=== PATIENT | male | born 1995 | race Caucasian/White ===

== ENCOUNTER → 2020-04-22 15:50 | Outpatient (CLI) | payer MEDICAID, SELFPAY ==
[2020-04-22 17:15] LABS: Basophils # 0.1 K/mm3 (0-0.2); Basophils % 0.5 % (0.1-2.0); Eosinophils # 0.1 K/mm3 (0.0-0.4); Eosinophils % 1.1 % (0.1-12.0); Hematocrit 48.6 % (42.0-52.0); Hemoglobin 15.7 g/dL (14.1-18.0); Lymphocytes # 3.1 K/mm3 (0.7-4.5); Lymphocytes % 34.3 % (10-50); Mean Corpuscular HGB Conc 32.2 g/dL (31.8-35.4); Mean Corpuscular Hemoglobin 28.4 pg (27.0-31.2); Mean Platelet Volume 10.2 fl (7.4-10.4); Monocytes # 0.4 K/mm3 (0.1-1.0); Monocytes % 4.6 % (1.7-9.3); Neutrophils # 5.3 K/mm3 (1.8-7.8); Neutrophils % 59.5 % (37.0-80.0); Platelet Count 260 K/mm3 (142-424); Red Blood Count 5.53 M/mm3 (4.60-6.20); Red Cell Distribution Width 13.3 % (11.5-17.5); White Blood Count 8.9 K/mm3 (4.8-10.8)
[2020-04-22 20:14] LABS: Chloride 106 mmol/L (98-107)
[2020-04-22 20:15] LABS: Potassium 4.3 mmoL/L (3.5-5.1); Sodium 142 mmol/L (136-145)
[2020-04-22 20:17] LABS: Alanine Aminotransferase 102 U/L (12-78); Alkaline Phosphatase 69 U/L (38-126); Aspartate Amino Transferase 57 U/L (17-59); Bilirubin,Total 0.6 mg/dl (0.2-1.3); Blood Urea Nitrogen 18 mg/dl (9-20); Estimated Glomerular Filt Rate 74 ml/min (>60); GFR (African American) 90 ML/MIN (>60)
[2020-04-22 20:18] LABS: Albumin Level 4.7 g/dl (3.5-5.0); Albumin/Globulin Ratio 1.3 (1.1-1.8); Anion Gap 15.3 mEq/L (5-15); Calcium 9.8 mg/dl (8.4-10.2); Carbon Dioxide 25 mmol/L (22.0-30.0); Chol/HDL Ratio 3.9 (1-3.5); Cholesterol 217 mg/dl (140-200); Globulin 3.5 g/dL (1.3-3.2); Glucose 114 mg/dl (74-100); HDL Cholesterol 55 mg/dl (40-60); Total Protein,Serum 8.2 g/dl (6.3-8.2); Triglycerides 75 mg/dl (30-150); VLDL Cholesterol 15 mg/dL (0-40)
[2020-04-22 20:29] LABS: Direct LDL Cholesterol 141.17 mg/dL (100-129)
[2020-04-22 20:36] LABS: 25-OH Vitamin D, Total 18.5 ng/mL (30-100)
[2020-04-22 20:49] LABS: Thyroid Stimulating Hormone 7.35 uIU/mL (0.465-4.68)
== END ==
PROVIDERS: Visit Provider Nurse Practitioner Family
DX: Z00.00 Encounter for general adult medical examination without abnormal findings (principal); R53.83 Other fatigue; E55.9 Vitamin D deficiency, unspecified; Z79.899 Other long term (current) drug therapy
CPT/HCPCS: 80053; 80061; 82306; 84439; 84443; 85025

== ENCOUNTER 2023-12-04 14:54 | Outpatient (CLI) | payer MEDICAID, SELFPAY ==
[2023-12-04 15:36] LABS: Basophils # 0.1 K/mm3 (0-0.2); Basophils % 0.6 % (0.1-2.0); Eosinophils # 0.2 K/mm3 (0.0-0.4); Eosinophils % 2.2 % (0.1-12.0); Hematocrit 46.5 % (42.0-52.0); Hemoglobin 15.4 g/dL (14.1-18.0); Lymphocytes # 3.8 K/mm3 (0.7-4.5); Mean Corpuscular HGB Conc 33.1 g/dL (31.8-35.4); Mean Corpuscular Hemoglobin 29.9 pg (27.0-31.2); Mean Corpuscular Volume 90.4 fl (80-94); Mean Platelet Volume 8.7 fl (7.4-10.4); Monocytes # 0.6 K/mm3 (0.1-1.0); Monocytes % 5.9 % (1.7-9.3); Neutrophils # 5.5 K/mm3 (1.8-7.8); Neutrophils % 54.2 % (37.0-80.0); Platelet Count 258 K/mm3 (142-424); Red Blood Count 5.14 M/mm3 (4.60-6.20); Red Cell Distribution Width 13.5 % (11.5-17.5); White Blood Count 10.1 K/mm3 (4.8-10.8)
[2023-12-04 16:33] LABS: Alanine Aminotransferase 129 U/L (12-78); Albumin Level 4.6 g/dl (3.5-5.0); Alkaline Phosphatase 64 U/L (38-126); Anion Gap 8.7 mEq/L (5-15); Aspartate Amino Transferase 67 U/L (17-59); Bilirubin,Direct 0.2 mg/dl (0.0-0.4); Bilirubin,Indirect 0.3 mg/dL (0.0-0.9); Bilirubin,Total 0.5 mg/dl (0.2-1.3); Bilirubin,Unconjugated 0.3 mg/dL (0.0-1.1); Blood Urea Nitrogen 14 mg/dl (9-20); Calcium 9.8 mg/dl (8.4-10.2); Carbon Dioxide 31 mmol/L (22.0-30.0); Chloride 102 mmol/L (98-107); Chol/HDL Ratio 3.9 (1-3.5); Cholesterol 225 mg/dl (140-200); Estimated Glomerular Filt Rate 73 ml/min (>60); GFR (African American) 88 ML/MIN (>60); Glucose 94 mg/dl (74-100); HDL Cholesterol 57 mg/dl (40-60); Potassium 4.7 mmoL/L (3.5-5.1); Sodium 137 mmol/L (136-145); Total Protein,Serum 7.3 g/dl (6.3-8.2); Triglycerides 132 mg/dl (30-150); VLDL Cholesterol 26 mg/dL (0-40)
[2023-12-04 16:44] LABS: Direct LDL Cholesterol 136.28 mg/dL (100-129)
[2023-12-04 16:52] LABS: Free T4 (Free Thyroxine) 0.88 ng/dl (0.78-2.19)
[2023-12-04 17:04] LABS: Thyroid Stimulating Hormone 2.73 uIU/mL (0.465-4.68)
== END 2023-12-04 23:59 | disposition home or self-care (01) ==
LOC: LAB 14:56
PROVIDERS: Nurse Practitioner Family; PCP Family Medicine; Visit Provider Internal Medicine
DX: R06.02 Shortness of breath (principal); R07.89 Other chest pain; I10 Essential (primary) hypertension; Z82.49 Family history of ischemic heart disease and other diseases of the circulatory system; F84.0 Autistic disorder
CPT/HCPCS: 36415; 80048; 80061; 80076; 84439; 84443; 85025

== ENCOUNTER 2023-12-12 09:58 | Outpatient (CLI) | payer MEDICAID, SELFPAY ==
--- NOTE | 2023-12-12 | CA_ITS ---
APPROVED REPORT Exam: Exercise Treadmill Technologist: Payton Baltazar, Ht: 5 ft 4 in Wt: 261 lbs BSA: 2.19 m2 HR: 76 bpm BP: 161/81 mmHg Rhythm: Nsr, right axis deviation, small Q waves and T wave abns inferiorly Medical History Medical History: HTN Medications: Acetaminophen,,,,, Ibuprofen,,,,, Ciprofloxacin-dexamethasone,,,,, Allergies: azithromycin, demerol, omnicef, polyhist HC Cardiac Risk Factors: HTN, FHX of CAD Stress Test Details Test: Fidel, Exercise stress testing was performed using a modified Fidel protocol. HR Resting HR: 96 bpm Max Heart Rate (APMHR): 193 bpm Max HR Achieved: 172 bpm Target HR (85% APMHR): 164 bpm % of APMHR: 89 Recovery HR: 102 bpm BP Resting BP: 161/81 mmHg Max BP: 161/81 mmHg Recovery BP: 141.0/80.0 mmHg ECG Resting ECG: Nsr, right axis deviation, small Q qaves and T wave abns inferiorly Clinical Exercise duration: 05:59 min Highest Stage Achieved: Exercise capacity: 7.0 METs Stress ECG Conclusion Pt exercised 6:00 on Fidel protocol Max HR: 170 % of PM: 88% Max BP: 141/87 Mets :7.0 Test stopped due to: soa, fatigue Pt had chest tightness with soa near maximum HR Exaggeration of baseline abns Conclusion: Nondiagnostic treadmill ECG stress test due to baseline abnormalities. GXT only (no imaging) Test Summary REST . . . . . . . Standing REST . . . . . . . Sitting REST 04:03 0.0 0.0 96 . 161/ 81 . . Stage 1 01:00 10.0 1.7 135 . . . . Stage 1 02:00 10.0 1.7 146 . . . . Stage 1 03:00 10.0 1.7 151 . . . . Stage 2 01:00 12.0 2.5 162 . . . . Stage 2 02:00 12.0 2.5 169 . . . . Stage 2 02:59 12.0 2.5 166 . . . Stop exercise at 05:59 RECOVERY 01:00 0.0 0.0 142 . . . . RECOVERY 02:00 0.0 0.0 124 . 140/ 80 . . RECOVERY 03:00 0.0 0.0 105 . 141/ 87 . . RECOVERY 04:00 0.0 0.0 108 . 141/ 87 . . RECOVERY 05:00 0.0 0.0 102 . 141/ 80 . . RECOVERY 05:19 0.0 0.0 99 . 141/ 80 . . Electronically signed by : Lynda Solomon MD 12/26/2023 13:02:41
--- NOTE | 2023-12-12 10:02 | CA_ITS ---
APPROVED REPORT EXAM: Comprehensive 2D, Doppler, and color-flow Echocardiogram Rf Manager: Chetna Rowley RVT Ht: 5 ft 4 in Wt: 261lbs BSA: 2.19 BP: 144/85 mmHg Indications: CP,HTN,SOA,FAMILY HX CAD 2D Dimensions LA Volume 13.10 mL LA Volume Index 5.98 mL/m2 (M/F) 16-34 M-Mode Dimensions RVDd 2.77 cm (0.9-2.6) LA Diam 3.33 cm (1.9-4.0) LVDd 3.81 cm (3.5-5.7) LVDs 2.41 cm (3.5-5.7) IVSd 1.04 cm (0.6-1.1) PWd 0.80 cm (0.6-1.1) EF (Teich) 67.30% FS 36.70% EDV (Teich) 62.30 mL ESV (Teich) 20.40 mL LV Diastology E Decel Time 150 (160-240 msec) E/A Ratio 1.3 LAT A' 12.40 cm/s Aortic Valve NELDA Index 1.96 cm2/m2 AoV Peak Aryan. 103.0 (50-130 cm/s) AO Peak GR. 4.20 mmHg AO Mean GR. 2.10 (<5 mmHg) AO VTI 13.9 (18-25 cm) NELDA (VTI) 4.39 (2.5-4.5 cm2) Mitral Valve MV E Max Aryan. 77.0 (40-130 cm/s) MV A Velocity 59.0 (40-130 cm/s) E/A Ratio 1.31 MV PHT 44.0 ms Pulmonary Valve PV Peak Velocity 106.0 (50-150 cm/s) Left Ventricle The left ventricle is normal size. The left ventricular systolic function is normal. The left ventricular ejection fraction is within the normal range. There is normal left ventricular wall thickness. There is normal LV segmental wall motion. The left ventricular diastolic function is normal. LVEF is 55%. Right Ventricle The right ventricle is normal size. The right ventricular systolic function is normal. Atria The left atrium size is normal. The right atrium size is normal. There is no Doppler evidence of interatrial shunt. Aortic Valve The aortic valve opens well. There is no aortic valvular stenosis. No aortic regurgitation is present. Mitral Valve The mitral valve is normal in structure. No evidence of mitral valve stenosis. There is no mitral valve regurgitation noted. Tricuspid Valve Tricuspid valve is grossly normal in structure and function. Trace tricuspid regurgitation. There is insufficient TR jet to estimate RVSP. Pulmonic Valve The pulmonary valve is normal in structure. Trace pulmonic regurgitation. Great Vessels The aortic root is normal in size. The ascending aorta is not well-visualized. IVC is normal in size and collapses >50% with inspiration. Pericardium There is no pericardial effusion. Other Information Study Quality: Fair Conclusion Normal biventricular systolic function. No significant valvular stenosis or regurgitation. Electronically signed by : Lynda Solomon MD 12/16/2023 23:38:59
== END 2023-12-12 23:59 | disposition home or self-care (01) ==
LOC: RT 09:59
PROVIDERS: PCP Family Medicine; Visit Provider Nurse Practitioner Family
DX: R06.02 Shortness of breath (principal); R07.89 Other chest pain
CPT/HCPCS: 93017; 93018; 93306

== ENCOUNTER 2024-01-10 08:40 | Outpatient (CLI) | payer MEDICAID, SELFPAY ==
--- NOTE | 2024-01-10 08:43 | CT_ITS ---
APPROVED REPORT Cancer Spec: CLINICAL INDICATION Chest Pain TECHNIQUE Image Acquisition: A 128 slice MDCT scanner ([employer] TargeGena View) was used for data acquisition. A noncontrast coronary calcium scan was performed. A CT attenuation threshold of 130 Hounsfield units (HU) was used for the detection of calcium in contiguous voxels of 1 sq mm in area to be counted as individual lesions. Bolus tracking in the ascending aorta with a threshold of 180 HU was performed. Immediately afterwards, ECG synchronized cardiac CT was then performed from the cardiac base to apex using retrospective gating with ECG tube current modulation. A total of 85 mL of Isovue 370 mg/mL contrast medium was administered at 5 mL/sec followed by a saline flush using a biphasic injection protocol. A tube voltage of 120 KVp was used. The average heart rate at the time of acquisition was 80bpm and regular. Image Reconstruction Transaxial images were reconstructed at 0.67 mm slide thickness. Data was reviewed interactively on an advanced workstation capable of 2 and 3-dimensional displays in all conventional reconstruction formats, including multiplanar reformations, maximum intensity projections, curved multiplanar reformations, and volume rendered reconstructions. When applicable, selected routine images describing the relevant coronary anatomy and pathology were saved and sent to PACS. Complications None Technical Quality Overall image quality was fair. Coronary artery opacification was suboptimal. Total DLP (Dose-Length Product) is 2935.4 mGy-cm. The reported value represents the total of one or more individual components during the CT acquisition of this date and at this time, and as such, the same value may appear in more than one CT report depending on the interpreting/reporting physicians. COMPARISON None FINDINGS CT Coronary Calcium Scoring LMA (Left Main Artery) = 0 LAD (Left Anterior Descending) = 0 LCX (Left Coronary Circumflex) = 0 RCA (Right Coronary Artery) = 0 Total Calcium Score = 0 using the AJ-130 method. The interpretation of the calcium heart score is based on the following continuum*: 0 = no calcified plaque detected (risk of coronary artery disease is very low ??? less than 5%) 1-10 = calcium detected in extremely minimal levels (risk of coronary diseases is still low ??? less than 10%) 11-100 = mild levels of plaque detected with certainty (mild or minimal narrowing of heart arteries is likely) 101-400 = definite,at least moderate levels of plaque detected (relatively high risk of a heart attack within 3-5 years) >401-999 = extensive levels of plaque detected (high risk of heart attack, high levels of vascular disease are present, high likelihood of at least one significant coronary narrowing) *The calcium heart score quantifies the burden of coronary calcification/plaque in the coronary arteries. The calcium heart score is not able to evaluate the presence or burden of non-calcified (i.e. soft) plaque. There is no identifiable calcification in the aortic valve, mitral annulus or mitral valve, pericardium, or myocardium. Coronary CT Angiography The coronary arterial system is right dominant. Quantitative Stenosis Grading: Left Main (LM): The left main originates normally from the left sinus of Valsalva. The LM bifurcates into the left anterior descending artery and left circumflex artery. The LM is patent with no evidence of atherosclerosis. Left Anterior Descending (LAD) and Diagonal Branches: The LAD gives off 2 diagonal branch(es). The LAD and its branches are patent with no obvious evidence of atherosclerosis. There is no evidence of LAD-myocardial bridge. Left Circumflex (LCX) and Obtuse Marginals (OM): The LCX gives off 1 Obtuse Marginal (OM) branch(es). The LCX and its branches are patent with no obvious evidence of atherosclerosis. Right Coronary Artery (RCA): The RCA originates normally from the right sinus of Valsalva. The RCA gives off a posterior descending artery (PDA) and posterolateral (PL) branches. The RCA and its branches are patent with no obvious evidence of atherosclerosis. Non-Coronary Cardiac Findings: Analysis of the left ventricular (LV) structure and function was performed after 3-D reconstruction of the LV from axial images, with user-corrected automatic contouring for assessment of LV volumes and user-defined reconstruction from oblique planes for measurement of 3-D cardiac structure and function. -The left ventricle systolic function is normal. -There is no left atrial appendage filling defect. Two right pulmonary veins and two left pulmonary veins drain normally into the left atrium. -No pericardial thickening or calcification. -Central and branch pulmonary arteries in the [id number] are unremarkable. -Thoracic aorta within the visualized thoracic aortic-branches in the [id number] is unremarkable. Extracardiac Structures No significant extra-cardiac findings. Note, however, that this study is focused on the cardiac findings. IMPRESSION -Suboptimal study due to inadequate opacification of the coronary arteries at the time of image acquisition. -No coronary calcification with an Agatston score = 0 using the AJ-130 method. -No obvious evidence of significant flow-limiting atherosclerosis of the coronary arteries. -No evidence of coronary anomalies or myocardial bridges. -CAD-RADS 0. Management recommendations per ACC/AHA guidelines*, as clinically appropriate. *Recommendations: CAD RADS 0: Reassurance. Consider non-atherosclerotic causes of chest pain. CAD RADS 1: Consider non-atherosclerotic causes of chest pain. Consider preventive therapy and risk factor modification. CAD RADS 2: Consider non-atherosclerotic causes of chest pain. Consider preventive therapy and risk factor modification, particularly for patients with nonobstructive plaque in multiple segments. CAD RADS 3: Consider further functional testing. Consider symptom-guided anti-ischemic and preventive pharmacotherapy as well as risk factor modification per published guideline statements. CAD RADS 4A: Consider further functional testing or invasive coronary angiography with revascularization per published guideline statements. Consider symptom-guided anti-ischemic and preventive pharmacotherapy as well as risk factor modification per published guideline statements. CAD RADS 4B: Invasive coronary angiography recommended with revascularization per published guideline statements. Consider symptom-guided anti-ischemic and preventive pharmacotherapy as well as risk factor modification per published guideline statements. CAD RADS 5: Consider invasive angiography and/or viability assessment with revascularization per published guideline statements. Consider symptom-guided anti-ischemic and preventive pharmacotherapy as well as risk factor modification per published guideline statements. CRITICAL RESULT None COMMUNICATION Per this written report The coronary and cardiac findings of this CCTA were reviewed, reported, and signed by Beck Solomon MD ([place]) Conclusion Electronically signed by : Lynda Solomon MD 01/12/2024 20:22:07
[2024-01-10 08:46] VITALS: BMI 44.4
[2024-01-10 10:10] VITALS: BP 145/93; PULSE 82; RESP 18; O2SAT 100
[2024-01-10] MEDS: IVABRADINE HCL 7.5MG TABLET PO (10:42)
[2024-01-10] MEDS: METOPROLOL TARTRATE 50MG TABLET PO (10:42)
[2024-01-10 10:47] LABS: Chloride 104 mmol/L (98-107); Potassium 4.6 mmoL/L (3.5-5.1); Sodium 139 mmol/L (136-145)
[2024-01-10 10:50] LABS: Anion Gap 13.6 mEq/L (5-15); Blood Urea Nitrogen 15 mg/dl (9-20); Calcium 9.1 mg/dl (8.4-10.2); Carbon Dioxide 26 mmol/L (22.0-30.0); Creatinine Clearance Estimated 103 mL/min (50-200); Estimated Glomerular Filt Rate 101 ml/min (>60); GFR (African American) 122 ML/MIN (>60); Glucose 108 mg/dl (74-100)
[2024-01-10 11:57] VITALS: BP 156/96; PULSE 70; RESP 18; O2SAT 99
[2024-01-10] MEDS: NITROGLYCERIN 0.4MG SL TABLET SL (11:57)
[2024-01-10 12:02] VITALS: BP 105/81; PULSE 79; RESP 16; O2SAT 97
[2024-01-10 12:07] VITALS: BP 109/70; PULSE 78; RESP 18; O2SAT 96
[2024-01-10 12:17] VITALS: BP 117/68; PULSE 75; RESP 18; O2SAT 95
[2024-01-10] MEDS: IOPAMIDOL-370 (76%);100ML BOTTLE 85 ML IV (12:17)
[2024-01-10] MEDS: 0.9 % SODIUM CHLORIDE 50 ML VIAL IV (12:17)
[2024-01-10] MEDS: SODIUM CHLORIDE 0.9% 10ML SYR (RAD ONLY) 10 ML IV (12:17)
== END 2024-01-10 12:20 | disposition home or self-care (01) ==
PROVIDERS: PCP Family Medicine; Visit Provider Nurse Practitioner Family
DX: R07.89 Other chest pain (principal); R06.09 Other forms of dyspnea; R94.39 Abnormal result of other cardiovascular function study
CPT/HCPCS: 75574; 80048; Q9967

== ENCOUNTER 2024-04-17 12:36 | Outpatient (CLI) | payer MEDICAID, SELFPAY ==
--- NOTE | 2024-04-17 12:43 | XR_ITS ---
FINAL REPORT CLINICAL HISTORY: pain after injury FINDINGS: Two views of the left hip demonstrate no acute fracture or dislocation. The joint spaces appear normal. No soft tissue abnormality is seen. IMPRESSION: No acute bony abnormality. Reviewed, Interpreted and Dictated by Natasha Laguna MD Transcribed by Meena Perry Authenticated and [facility]
--- NOTE | 2024-04-17 12:43 | XR_ITS ---
FINAL REPORT TECHNIQUE: 5 views CLINICAL HISTORY: pain after injury FINDINGS: There is no fracture present. There is no malalignment. There are no significant degenerative changes. IMPRESSION: No acute process. Reviewed, Interpreted and Dictated by Natasha Laguna MD Transcribed by Meena Perry Authenticated and . [facility]
--- NOTE | 2024-04-17 12:43 | XR_ITS ---
FINAL REPORT CLINICAL HISTORY: pain after injury FINDINGS: Three views of the right hip demonstrate no acute fracture or dislocation. The joint spaces appear normal. No soft tissue abnormality is seen. IMPRESSION: No acute bony abnormality. Reviewed, Interpreted and Dictated by Natasha Laguna MD Transcribed by Meena Perry Authenticated and [facility]
== END 2024-04-17 23:59 | disposition home or self-care (01) ==
LOC: RAD 12:37
PROVIDERS: PCP Family Medicine; Visit Provider Nurse Practitioner Family
DX: M25.551 Pain in right hip (principal); M25.552 Pain in left hip; M54.9 Dorsalgia, unspecified
CPT/HCPCS: 72110; 73502

== ENCOUNTER 2024-05-10 01:35 | Emergency (ER) | payer MEDICAID, SELFPAY ==
[2024-05-10 01:37] VITALS: BP 150/104; PULSE 77; RESP 18; TEMP 36.7; O2SAT 99; BMI 44.6
--- NOTE | 2024-05-10 01:43 | HMH.EDGENADL ---
Discharge Plan Disposition Patient Disposition: Home, Self-Care Condition: Good Prescriptions Prescriptions: New amoxicillin-pot clavulanate 875-125 mg tablet 1 tab PO BID 7 Days Qty: 14 0RF No Action omeprazole 40 mg capsule,delayed release(DR/EC) 40 mg PO DAILY Qty: 30 5RF prednisone 50 mg tablet 50 mg PO DAILY 5 Days Qty: 5 0RF acetaminophen 325 mg tablet 650 mg PO Q6H PRN (Reason: pain) Qty: 90 2RF ibuprofen 600 mg tablet 600 mg PO Q8H PRN (Reason: pain) Qty: 60 2RF valsartan 80 mg tablet 80 mg PO DAILY Qty: 30 5RF Referrals Follow up/Referrals: Angel Chowdhury MD [Primary Care Provider] - See instructions Activity Restrictions/Add. Instructions Additional Instructions/Restrictions: Please follow-up with dentistry. Consider going to the [facility] dentistry walk-in clinic. Their information is available online. Please return to the emergency department if you develop any new or worsening symptoms or become concerned for your health. Please take antibiotics as prescribed for treatment of infection. Please take Tylenol and ibuprofen as needed for pain Clinical Impressions Clinical Impression: Dental infection Print Language Print Language: Stateless Discharge ED Provider: Alejandro Islas [facility] Adult HPI General Chief complaint: Dental/Oral Stated complaint: Tooth pain Time Seen by Provider: 05/10/24 01:43 History of Present Illness HPI narrative: 29-year-old male presents with left-sided jaw pain. Reports he has been having pain for a few days at least. Feels like it started to get more swollen. Denies fever at home. Tried to see a dentist but was unable to be seen due to insurance issues. Related Data Previous Rx's ?Medication ?Instructions ?Recorded acetaminophen 325 mg tablet 650 mg (2 x 325 mg) PO Q6H PRN 11/01/23 pain #90 tabs ibuprofen 600 mg tablet 600 mg PO Q8H PRN pain #60 tabs 11/01/23 valsartan 80 mg tablet 80 mg PO DAILY #30 tabs 12/04/23 omeprazole 40 mg capsule,delayed 40 mg PO DAILY #30 caps 01/08/24 release prednisone 50 mg tablet 50 mg PO DAILY 5 days #5 tabs 04/17/24 amoxicillin 875 mg-potassium 1 tab PO BID 7 days #14 tabs 05/10/24 clavulanate 125 mg tablet Allergies Allergy/AdvReac Type Severity Reaction Status Date / Time AZITHROMYCIN Allergy Intermediate NA-NAUSEA/V Uncoded 04/17/24 11:10 OMITING From DEMEROL Allergy Intermediate NA-NAUSEA Uncoded 04/17/24 11:10 From OMNICEF Allergy Intermediate I-HIVES Uncoded 04/17/24 11:10 From POLY HIST HC Allergy Mild Uncoded 04/17/24 11:10 [facility] Disclaimer: The information contained in this section may have been updated after the patient was seen, as this information can be updated by other users. Medical History Normal hearing test of right ear Conductive hearing loss in left ear Family history of early CAD Hypertension SOBOE (shortness of breath on exertion) Chest pain Impacted cerumen, bilateral Dizziness Headache Hearing difficulty of left ear Otalgia, left ear Autism Surgical History History of cholecystectomy H/O hernia repair History of placement of ear tubes H/O adenoidectomy Hx of tonsillectomy Social History Smoking Status: Never smoker alcohol intake: current alcohol intake frequency: holidays/special occasions only substance use type: denies use current occupational status: disabled Travel in the last 8 weeks: None household members: family housing: house Have you lived/traveled outside [place] in past 30 days?: No Contact w/someone who lives/traveled outside [place] past 30 days?: No Exposure to someone with infectious disease in past 14 days?: No Do you have a fever (greater than 100.4 F or 38 C)?: No Have you tested positive for COVID-19: No Exposed to someone with COVID-19 in past 14 days?: No Do you have a sore throat?: No Do you have a cough?: No Do you have any weakness?: No Do you have any diarrhea?: No Are you experiencing any unusual bleeding?: No Do you have any muscle aches/pain?: No Do you have any abdominal pain?: No Are you experiencing loss of taste or smell?: No Other Medical History Have you received the Flu Vaccine for this season: No Have you received the Pneumonia Vaccine: No ROS Obtained: Yes All systems reviewed & no additional complaints except as documented Physical Exam General General appearance: alert and in no apparent distress Head Head exam: atraumatic and normocephalic Eye Eye exam: Present normal appearance, PERRL and EOMI ENT ENT exam: Present normal external ear exam; Absent normal oropharynx (Dental fracture of a left posterior mandibular molar. Mild soft tissue swelling overlying, no palpable abscess) Neck Neck exam: Present normal inspection and full ROM Chest Chest inspection: Present normal inspection and symmetric chest wall rise; Absent tenderness Respiratory Respiratory exam: Present normal lung sounds bilaterally; Absent respiratory distress Cardiovascular Cardiovascular exam: Present regular rate and normal rhythm Abdominal Exam Abdominal exam: Present soft; Absent distention, tenderness or guarding Extremities Exam Extremities exam: Present normal inspection; Absent edema or joint swelling Back Exam Back exam: Present normal inspection; Absent tenderness Neurological Exam Neurological exam: Present alert and oriented X3; Absent motor sensory deficit Psychiatric Psychiatric exam: Present normal affect and normal mood Skin Skin exam: Present warm, dry and normal color Lymphatic Lymphatic Findings: no adenopathy Medical Decision Making Medical Records Medical records reviewed: Yes I reviewed the patient's medical records. Screening: Per USPSTF and CDC recommendations, given the prevalence of disease in our region, it is our hospital?s policy to screen for HIV and viral Hepatitis for all patients aged 18 and over and those with ongoing risk factors. Alvarez Inquiry Pt receiving controlled substance: No Alvarez was queried for this patient: No Vital Signs: 05/10/24 01:37 05/10/24 03:00 Temperature 98.1 F 97.9 F Temperature Source Oral Oral Pulse Rate 78 Pulse Rate [Right Radial] 77 Respiratory Rate 18 16 Blood Pressure 148/90 H Blood Pressure [Right Arm] 150/104 H Blood Pressure Mean [Right Arm] 119 Blood Pressure Source Automatic Cuff Blood Pressure Source [Right Arm] Automatic Cuff Blood Pressure Position Supine Blood Pressure Position [Right Arm] Supine 02 Sat by Pulse Oximetry 99 Oxygen Delivery Method Room Air Room Air Lab Data Lab results reviewed: Yes I reviewed the patient's lab results. Orders (Tests/Meds): ED MEDICATIONS Discontinued Medications Generic Name Dose Route Start Last Admin Trade Name Freq PRN Reason Stop Dose Admin Amoxicillin/Clavulanate Potassium 1 each 05/10/24 01:43 05/10/24 01:56 Amoxicillin/Clavulanate Potassium 875/125mg Tablet PO 05/10/24 01:44 1 each ONCE ONE Administration Medical Decision Narrative: 29-year-old male presents with a few days of left mandibular dental pain. History was obtained via interactive discussion with patient, friend. On arrival, patient is [afebrile, hemodynamically stable, satting appropriately, alert, oriented x4, GCS 15], moving all extremities spontaneously. Full physical exam performed and significant for left mandibular molar dental fracture with some soft tissue swelling without abscess Differential includes but is not limited to dental fracture, dental infection, abscess, cellulitis. Patient declined intervention such as pain meds or dental block. He was discharged in stable condition with prescription for Augmentin and instructions follow-up with dentistry as soon as possible for definitive management. Procedures Risk/Benefits of Procedure(s) Were Explained: Yes Critical Care Critical Care Time Critical Care Time: No
[2024-05-10] MEDS: AMOXICILLIN/CLAVULANATE POTASSIUM 875/125MG TABLET 1 EACH PO (01:56)
[2024-05-10 03:00] VITALS: BP 148/90; PULSE 78; RESP 16; TEMP 36.6; O2SAT 98
== END 2024-05-10 03:01 | disposition home or self-care (01) ==
LOC: ER 01:55
PROVIDERS: Emergency Provider Emergency Medicine; PCP Family Medicine
DX: K04.7 Periapical abscess without sinus (principal); K08.89 Other specified disorders of teeth and supporting structures
CPT/HCPCS: 99283

== ENCOUNTER 2024-05-14 13:00 | Outpatient (RCR) | payer MEDICAID, SELFPAY ==
--- NOTE | 2024-05-12 13:58 | HMH.PTOPEV ---
PT Outpatient Evaluation Rehab PT Outpatient Evaluation Start: 05/12/24 13:09 Freq: Status: Active Protocol: Document 05/12/24 13:10 [id number] (Rec: 05/12/24 13:58 [email or web address] [id number]) E-signed By Carlos Eduardo Forbes, PT Outpatient Therapy Subjective History Subjective History Pt. is a 29 year old male who presents to [facility] Outpatient Physical Therapy Services in [place] for the outpatient initial evaluation this date( 05/12/24) w/ c/o acute on subacute and intermittent B/L lumbar and hip P!, stiffness, and muscle spasms of traumatic onset that has gotten worse since his second fall a couple of weeks ago. Pt. reports slipping on ice and landing on B/L back/hip region that worsened symptoms. Pt. vocalized initial onset of symptoms were secondary to a fall in March. Pt. reports symptoms were improved with time until his second slip and fall. Pt. reports symptoms will worsen w/ when sits, bends over, or tries to sleep. Pt. reports symptoms worsen to a 8/10 after he has been laying down to try and fall asleep. Recent diagnostic imaging negative per pt. report. Pt. denies injections for current complaint. Pt. denies numbness/tingling into neither BLE nor saddle region, denies bowel/bladder dysfunction at this time. Current medications included Prednisone and Omeprazole(pt. unable to recall medication name for Hypertension). PMH includes GERD, Hypertension, Herniorrhaphy, Tonsillectomy, Adenoidectomy, Tympanostomy Tubes, Cholecystectomy, and LLE fibular fracture secondary to injury. New diagnosis of cancer in past 12 No months? Chief Complaint Pain,Spasms,Stiff,Catches/ Locks,Gives out/Unstable Symptom Type Ache,Throb,Sharp,Dull,Shooting Symptoms Relieved By Rest/Positioning,Ice, Prescription Meds Symptoms Aggravated By Sitting,Bending/Stooping, Physical Activity,Twisting, Walking,Lifting Prior Functional Limitations None Current Functional Limitations Lifting,Housework,Sleeping, Sitting,Recreation Activity, Walking,Bending/Stooping Symptom Description Intermittent,Activity Dependent Level of pain today (0-10) 0 Pain scale - at its best (0-10) 0 Pain scale - at its worst (0-10) 6 Lumbopelvic Eval Posture Thoracic Spine Posture Standing Position Neutral Lumbar Spine Posture Standing Position Neutral Assistive device Assistive Devices None / NA Gait Observation General Gait Pattern Observation No Deviations/Normal Palapation tenderness bilateral lumbar spinal tenderness Yes: L1-L5 paraspinal tenderness Yes: B/L adjacent LSPS buttock tenderness Yes: B/L piriformis mms., PSIS Lumbar/Sacral Palpation Findings Tenderness,Spasm,Muscle Guarding Lumbar/Sacral Palpation Overall Comment grade 4 +TTP Accessory Movement L-spine Vertebrae Accessory Movements Central P/A [place],Right P/A that Elicit Symptoms [place],Left P/A [place] L2 bilateral L3 bilateral L4 bilateral L5 bilateral S1 bilateral Range of Motion Lumbar Spine Active Flexion Range of 61 Motion (degrees) Lumbar Spine Active Extension Range of 26 Motion (degrees) Left Lumbar Spine Lateral Flexion Active 27 Range of Motion (degrees) Right Lumbar Spine Lateral Flexion 29 Active Range of Motion (degrees) Lumbar Spine ROM Limitations Soft Tissue Tightness,Muscle Weakness,Pain Manual Muscle Test Bilateral Knee Extension Strength Grade 4- Good- Knee Flexion Strength Grade 4- Good- Hip Flexion Strength Grade 4- Good- Hip Abduction Strength Grade 4 Good Hip Adduction Strength Grade 4 Good Hip External Rotation Strength Grade 4- Good- Hip Internal Rotation Strength Grade 4- Good- Hip Extension Strength Grade 4 Good Gluteus Riley Strength Grade 4 Good Extensor Hallucis Longus Strength Grade 4 Good Ankle Dorsiflexion Strength Grade 4 Good Gastronemius/Soleus Strength Grade 4 Good DTR Rt Patellar 2+ Lt Patellar 2+ Rt Gastroc/Soleus 2+ Lt Gastroc/Soleus 2+ Altered Sensation Bilateral LE Dermatome Level L1,L2,L3,L4,L5,S1 Comment vocalized light touch sensation symmetrical in patterns above Special Tests Lumbar Spine Screen Positive Hip Piriformis Test Positive Left,Positive Right Sciatic Nerve Tension Test Negative Left,Negative Right Unilateral Straight Leg Raise (Lasegue) Positive Left,Positive Right Test Bilateral Straight Leg Raise Test Positive Outpatient Therapy Assessment Impairments Problems/Impairmments Palpation Tenderness,Impaired Range of Motion,Impaired Strength,Impaired Walking, Impaired Sitting,Impaired Lifting,Impaired Household Care,Impaired Bending,Impaired Recreational Activities, Subjective C/O Pain,Impaired Self Care/Self Management Prognosis Rehab Potential Good Comment w/ HEP compliancy Clinical Impression Consistent with Diagnosis Yes Consistent with lumbago w/o radiculopathy Additional details: mechanical lumbar P! Short Term Goals Number of Weeks 2 Decreased Palpation Tenderness Yes: grade 1-2 +TTP Decrease Subjective C/O Pain Yes: worse:07/11 Patient to be Ind w/ HEP Yes Long-Term Goals Number of Weeks 4-6 Decreased Palpation Tenderness Yes: grade 1 +TTP Increase Range of Motion Yes: lumbar spine AROM WNL grossly Increase Strength Yes: 4+ to 5/5 B/L hip MMT scores grossly Increase Ability to Walk Yes Increase Ability to Sit Yes Increase Ability to Drive/Ride in Car Yes Improve Ability to Bend Yes Improve Oswestry Score Yes Decrease Subjective C/O Pain Yes: worse:-04/13 Improve Self Care/Self Management Yes: Pt. will be able to sleep through the night w/o LBP! Patient to be Ind w/ Advanced HEP Yes Outpatient Therapy Plan of Care Treatment Plan May Include Therapeutic Exercise Including Home Yes Exercise Program Manual Therapy Techniques Yes Neuromuscular Re-education Yes Therapeutic Activities to Return to Yes Previous Functional/Work Level ADL/Self Care Education Yes Mechanical Traction Yes Dry Needling Yes Thermal Modalities Yes Electrical Stimulation Yes Ultrasound/Phonophoresis Yes Iontophoresis Yes Vasopneumatic Compression Pump Yes Massage Yes Eval/Re-Eval Yes Frequency Times per week 2 Duration Number of Weeks 4-6 Addendums This patient is a candidate for social No or vocational rehab? Patient/Guardian verbally acknowledges Yes understanding of treatment program and consents to further treatment? Patient/Guardian verbally acknowledges Yes understanding of diagnosis, prognosis and goals for treatment? Eval Complexity PT Charges 41791 - Low Complexity Shoulder/Elbow Eval Shoulder Objective Measurements Elbow Objective Measurements PHYSICIAN CERTIFICATION: I certify the specified therapy services for Nadeem Medina are required, authorized, and reviewed every 30 days.
== END 2024-05-14 23:59 | disposition home or self-care (01) ==
LOC: PT 13:00
PROVIDERS: Visit Provider Nurse Practitioner Family
DX: M54.9 Dorsalgia, unspecified (principal)
CPT/HCPCS: 97110; 97163

== ENCOUNTER 2024-10-22 11:36 | Day surgery (SDC) | payer MEDICAID, SELFPAY ==
--- NOTE | 2024-10-21 16:51 | EXP.HP ---
History of Present Illness *Admission Date: 10/22/24 *History of present illness: Mr. Medina is a 29-year-old gentleman who is here for diagnostic EGD secondary to heartburn and reflux for the last couple of years. He does get some bloating, belching and gassiness. He did improve with omeprazole but is getting breakthrough heartburn and reflux at nighttime. He has never had an EGD. The examination is deemed medically necessary for diagnostic EGD. The patient has been seen, interviewed and examined prior to the procedure by both myself and the anesthesia provider. [facility] Disclaimer: The information contained in this section may have been updated after the patient was seen, as this information can be updated by other users. Medical History Normal hearing test of right ear Conductive hearing loss in left ear Family history of early CAD Hypertension SOBOE (shortness of breath on exertion) Chest pain Impacted cerumen, bilateral Dizziness Headache Hearing difficulty of left ear Otalgia, left ear Autism Surgical History History of cholecystectomy H/O hernia repair History of placement of ear tubes H/O adenoidectomy Hx of tonsillectomy Social History Smoking Status: Never smoker alcohol intake: current alcohol intake frequency: holidays/special occasions only substance use type: denies use current occupational status: disabled Travel in the last 8 weeks?: None household members: family housing: house Have you lived/traveled outside [place] in past 30 days?: No Contact w/someone who lives/traveled outside US past 30 days?: No Exposure to someone with infectious disease in past 14 days?: No Do you have a fever (greater than 100.4 F or 38 C)?: No Have you tested positive for COVID-19?: No Exposed to someone with COVID-19 in past 14 days?: No Do you have a sore throat?: No Do you have a cough?: No Do you have any weakness?: No Do you have any diarrhea?: No Are you experiencing any unusual bleeding?: No Do you have any muscle aches/pain?: No Do you have any abdominal pain?: No Are you experiencing loss of taste or smell?: No Other Medical History Have you received the Flu Vaccine for this season: No Have you received the Pneumonia Vaccine: No Review of Systems Review of Systems Review of systems (narrative): Negative *Cardiovascular Comments: Negative *Gastrointestinal Comments: Negative *Genitourinary Comments: Negative *Musculoskeletal Comments: Negative *Neurologic Comments: Negative Meds Home Medications and Allergies Home Medications ?Medication ?Instructions ?Recorded ?Confirmed ?Type acetaminophen 325 mg tablet 650 mg (2 x 325 mg) PO Q6H PRN 11/01/23 08/12/24 Rx pain #90 tabs ibuprofen 600 mg tablet 600 mg PO Q8H PRN pain #60 tabs 11/01/23 08/12/24 Rx valsartan 80 mg tablet 80 mg PO DAILY #30 tabs 12/04/23 08/12/24 Rx pantoprazole 40 mg tablet,delayed 40 mg PO DAILY #90 tabs 08/12/24 08/12/24 Rx release New Prescriptions to Start Prescriptions: Allergies Allergy/AdvReac Type Severity Reaction Status Date / Time AZITHROMYCIN Allergy Intermediate NA-NAUSEA/V Uncoded 08/12/24 10:03 OMITING From DEMEROL Allergy Intermediate NA-NAUSEA Uncoded 08/12/24 10:03 From OMNICEF Allergy Intermediate I-HIVES Uncoded 08/12/24 10:03 From POLY HIST HC Allergy Mild Uncoded 08/12/24 10:03 Exam *Routine HEENT Exam Head: Present normocephalic Eye: Present EOMI and PERRL ENT: Present mucous membranes moist *Routine Neck Exam Neck: Present supple *Routine Respiratory Exam Respiratory: Present CTA bilaterally *Routine Cardiovascular Exam Cardiovascular: Present RRR *Routine Abdominal Exam Abdominal: Present soft and normoactive bowel sounds; Absent tenderness *Routine Rectal Exam Rectal:: deferred *Routine Genitalia Exam Genitalia:: deferred *Routine Extremities Exam Extremities: Absent cyanosis, clubbing or edema *Routine Skin Exam Skin: Present warm; Absent rash *Routine Neurological Exam Neurological: Present alert and oriented X3 Assessment and Plan *Assessment and plan (1) GERD (gastroesophageal reflux disease): Status: Acute Category: Medical Code(s): K21.9 - Gastro-esophageal reflux disease without esophagitis (2) Heartburn: Status: Acute Category: Medical Code(s): R12 - Heartburn (3) Dyspepsia: Status: Acute Category: Medical Code(s): R10.13 - Epigastric pain (4) Belching: Status: Acute Category: Medical Code(s): R14.2 - Eructation (5) Bloating: Status: Acute Category: Medical Code(s): R14.0 - Abdominal distension (gaseous) Plan A/P: 1. GERD and heartburn with breakthrough symptoms on PPI therapy is the preprocedural diagnosis. The patient does report belching, bloating and dyspepsia. The patient will be anesthetized/sedated using MAC sedation. The patient has been seen and examined. Cardiac and lung assessment prior to the examination is stable. Proceed with planned diagnostic EGD.
[2024-10-22 13:08] VITALS: BP 142/70; PULSE 75; RESP 18; TEMP 36.4; O2SAT 100; BMI 42.9
[2024-10-22 13:20] VITALS: BP 86/43; PULSE 86; RESP 16; O2SAT 93
--- NOTE | 2024-10-22 13:27 | HMH.PROCNOTE ---
[facility] Procedure Note Date: 10/22/24 Time: 13:30 Procedure Note:: Upper Endoscopy Procedure Report: Esophagogastroduodenoscopy with cold biopsies Endoscopost: Luis Camacho II, MD Referring Physician: Angel Chowdhury MD Date of Procedure: October 22, 2024 Equipment: Olympus GIF-1100 standard upper endoscope Sedation: MAC sedation Indications: Mr. Medina is a 29-year-old gentleman who is here for diagnostic EGD secondary to heartburn, reflux and some noncardiac chest pain. He has had a prior CTA last year that was normal. The patient does report belching, bloating, some nausea and early satiety. He has had some epigastric abdominal discomfort. He also reports some chronic diarrhea since gallbladder surgery. He has never had an EGD. Procedure: Prior to the procedure, a history and physical exam was performed, and patient's medications and allergies were reviewed. The risks, benefits and alternatives of the sedation and procedure were discussed with the patient. All questions were answered and informed consent was obtained. The patient was brought to the procedure room. Patient identification and proposed procedure were verified by the physician and the nurse. The patient was placed in a left lateral decubitus position and the scope was passed under direct vision. Throughout the procedure, the patient's blood pressure, pulse, and oxygen saturations were monitored continuously. The upper GI endoscopy was accomplished without difficulty. The patient tolerated the procedure well. Findings: The scope was passed directly into the upper esophagus and advanced to the third portion of the duodenum. A cold biopsy was taken from the second portion of the duodenum for the disaccharidase assay. The post bulbar duodenum, ampulla and duodenal bulb were normal with normal mucosa and conniventes. Cold biopsies were taken from the first portion of the duodenum to rule out celiac disease. The scope was withdrawn through a normal duodenal bulb and pylorus into the stomach. There was some very mild linear reactive gastropathy of the antrum. The body and fundus of the stomach were grossly normal. Upon retroflexion there was no hiatal hernia. Cold biopsies were taken from the antrum. The scope was then withdrawn into the esophagus. There was no evidence of reflux esophagitis or Valentine's. There were some tertiary contractions and evidence of moderate esophageal dysmotility. There was no corrugation or furling. There was no inlet patch or candidal esophagitis. The remainder of the esophageal mucosa was normal. Impression: 1. Nonerosive GERD with moderate esophageal dysmotility 2. Mild linear reactive gastropathy of antrum Plan: I will follow-up the biopsies and disaccharidase assay. We will discuss additional treatment options. I would consider adding promotility therapy with metoclopramide.
--- NOTE | 2024-10-22 13:27 | EXP.ANES.CKL ---
[facility] Disclaimer: The information contained in this section may have been updated after the patient was seen, as this information can be updated by other users. Medical History Normal hearing test of right ear Conductive hearing loss in left ear Family history of early CAD Hypertension SOBOE (shortness of breath on exertion) Chest pain Impacted cerumen, bilateral Dizziness Headache Hearing difficulty of left ear Otalgia, left ear Autism Surgical History History of cholecystectomy H/O hernia repair History of placement of ear tubes H/O adenoidectomy Hx of tonsillectomy Social History Smoking Status: Never smoker alcohol intake: current alcohol intake frequency: holidays/special occasions only substance use type: denies use current occupational status: disabled Travel in the last 8 weeks?: None household members: family housing: house Have you lived/traveled outside US in past 30 days?: No Contact w/someone who lives/traveled outside US past 30 days?: No Exposure to someone with infectious disease in past 14 days?: No Do you have a fever (greater than 100.4 F or 38 C)?: No Have you tested positive for COVID-19?: No Exposed to someone with COVID-19 in past 14 days?: No Do you have a sore throat?: No Do you have a cough?: No Do you have any weakness?: No Do you have any diarrhea?: No Are you experiencing any unusual bleeding?: No Do you have any muscle aches/pain?: No Do you have any abdominal pain?: No Are you experiencing loss of taste or smell?: No [facility] Anesthesia Checklist Patient Identification Patient Identification: Arm Band Structural Data Admitted From: Home Planned Operative Procedure/s: EGD Consent for Planned Operative Procedure(s) Verified: Yes Verified Documents: Surgical Consent and History and Physical NPO Status Verified Time NPO: 00:00 Additional verifications Anesthesia Reactions: No Hx Blood Transfusions: No Blood Transfusion Reaction: No Airway Assessment Mallampati Score:: Class II C-Spine Mobility Assessed: Yes TMJ Mobility Assessed: Yes Dentition: Good Dentition Neurological Assessment Level of Consciousness: Awake, Alert and Appropriate Anesthesia Plan Anesthesia Risk discussed: Yes Anesthesia Plan: Verified ASA Class: III Anesthesia Type: MAC
[2024-10-22 13:30] VITALS: BP 110/50; PULSE 86; RESP 16; O2SAT 98
[2024-10-22 13:40] VITALS: BP 117/58; PULSE 79; RESP 18; O2SAT 98
[2024-10-22 13:50] VITALS: BP 139/75; PULSE 76; RESP 18; O2SAT 100
[2024-10-27 15:23] LABS: Interpretation Notes (.); Lactase 2.07 (>/= 14.0); Maltase 65.88 (>/= 110.0); Palatinase 3.46 (>/= 8.5); Reference Notes (.); Sucrase 12.44 (>/= 25.0)
== END 2024-10-22 13:50 | disposition home or self-care (01) ==
PROVIDERS: PCP Family Medicine; Visit Provider Internal Medicine Gastroenterology
PROC: 0DJ08ZZ Inspection of Upper Intestinal Tract, Via Natural or Artificial Opening Endoscopic (ICD-10-PCS; CPT 43239; principal; 2024-10-22 13:30)
DX: K21.9 Gastro-esophageal reflux disease without esophagitis (principal); K31.9 Disease of stomach and duodenum, unspecified; I10 Essential (primary) hypertension; Z79.899 Other long term (current) drug therapy
CPT/HCPCS: 43239; 82657; J2003; J2704